=== PATIENT | female | born 2000 | race Caucasian/White ===

== ENCOUNTER → 2022-07-17 | Outpatient (REF) ==
[2022-07-17 13:20] LABS: RSV AMPLIFICATION NEGATIVE (NEGATIVE)
== END ==
LOC: M LABSMTC 10:51
PROVIDERS: ATTEND Family Medicine
DX: Z20.818 Contact with and (suspected) exposure to other bacterial communicable diseases (principal)

== ENCOUNTER 2022-09-29 09:22 | Emergency (ER) | payer OTHER ==
[~2022-09-29] VITALS: Ht 165.1 cm; Wt 64.9 kg
[2022-09-29 12:09] VITALS: BP 101/59
== END 2022-09-29 12:12 | disposition home or self-care (01) ==
LOC: M ED 09:22
DX: O9A.211 Injury, poisoning and certain other consequences of external causes complicating pregnancy, first trimester (principal); S59.912A Unspecified injury of left forearm, initial encounter; W19.XXXA Unspecified fall, initial encounter; Y92.89 Other specified places as the place of occurrence of the external cause; Y93.89 Activity, other specified; Y99.8 Other external cause status; Z3A.11 11 weeks gestation of pregnancy

== ENCOUNTER 2022-12-08 14:08 | Outpatient (CLI) | payer OTHER ==
[~2022-12-08] VITALS: Ht 165.1 cm; Wt 69.0 kg
[2022-12-08] MEDS ORDERED: COLA100C5 PO (14:23)
[2022-12-08] MEDS ORDERED: MIRA3350 PO (14:23)
[2022-12-08] MEDS ORDERED: PREN1CHW PO (14:23)
[2022-12-08] MEDS ORDERED: WELLTAB38 PO (14:23)
[2022-12-08 14:25] VITALS: BP 118/72
[2022-12-08] MEDS ORDERED: HOME MED LIST COMPLETE! XX SCH (14:25)
[2022-12-08] MEDS ORDERED: LR 1,000 ML IV ONE (15:20)
[2022-12-08] MEDS ORDERED: FLEET ENEMA PR ONE (15:20)
== END 2022-12-08 17:10 | disposition home or self-care (01) ==
LOC: M LDO 14:08
PROVIDERS: ATTEND Registered Nurse
DX: O99.612 Diseases of the digestive system complicating pregnancy, second trimester (principal); K59.00 Constipation, unspecified; Z3A.20 20 weeks gestation of pregnancy; Z88.2 Allergy status to sulfonamides; Z79.899 Other long term (current) drug therapy
CPT/HCPCS: 59025; 96360; G0463

== ENCOUNTER 2023-03-06 13:40 | Outpatient (CLI) | payer OTHER ==
[~2023-03-06] VITALS: Ht 165.1 cm; Wt 73.0 kg
[~2023-03-06 13:40] MED LIST: COLA100C5 PO; MIRA3350 PO; PREN1CHW PO; WELLTAB38 PO
[2023-03-06] MEDS ORDERED: HOME MED LIST COMPLETE! XX SCH (14:30)
== END 2023-03-06 14:55 | disposition home or self-care (01) ==
LOC: M LDO 13:40
PROVIDERS: ATTEND Obstetrics & Gynecology
DX: O36.8130 Decreased fetal movements, third trimester, not applicable or unspecified (principal); Z3A.33 33 weeks gestation of pregnancy; Z88.2 Allergy status to sulfonamides
CPT/HCPCS: 59025; 76815; G0463

== ENCOUNTER 2023-09-14 02:15 | Emergency (ER) | payer OTHER ==
[~2023-09-14] VITALS: Ht 165.1 cm; Wt 62.3 kg
[~2023-09-14 02:15] MED LIST changes: +FAMO20TA PO
[2023-09-14 03:51] LABS: BASO % 0.4 % (0.0-1.0); EOS # 0.1 10^3/uL (0.0-0.5); HEMATOCRIT 41.2 % (36.0-47.0); HEMOGLOBIN 13.8 g/dl (12.0-15.5); LYMPH # 1.2 10^3/uL (1.5-5.0); LYMPH % 12.1 % (24.0-44.0); MEAN CORPUSCULAR HEMOGLOBIN 29.2 pg (27.0-33.0); MEAN CORPUSCULAR HGB CONC 33.5 g/dl (32.0-36.5); MEAN CORPUSCULAR VOLUME 87.1 fl (80.0-96.0); MONO # 0.9 10^3/uL (0.0-0.8); MONO % 9.1 % (2.0-8.0); NEUTROPHILS # 7.6 10^3/uL (1.5-8.5); NEUTROPHILS % 77.1 % (36.0-66.0); PLATELET COUNT, AUTOMATED 238 10^3/uL (150-450); RED BLOOD COUNT 4.73 10^6/uL (4.00-5.40); WHITE BLOOD COUNT 9.8 10^3/uL (4.0-10.0)
[2023-09-14 04:14] LABS: LIPASE 28 U/L (12-53)
[2023-09-14 04:16] LABS: ALBUMIN 3.9 G/DL (3.2-5.2); ALKALINE PHOSPHATASE 66 U/L (46-116); ALT/SGPT 26 U/L (7.0-40); AST/SGOT 11 U/L (<34); BILIRUBIN,DIRECT < 0.1 MG/DL (<0.4); BILIRUBIN,TOTAL 0.2 MG/DL (0.3-1.2); TOTAL PROTEIN 7.3 G/DL (5.7-8.2)
[2023-09-14] MEDS: NS 500 ML IV ONE (04:27)
[2023-09-14] MEDS: KETOROLAC 30 MG/ML 1ML VIAL IV ONE (04:27)
[2023-09-14 04:34] LABS: RSV AMPLIFICATION NEGATIVE (NEGATIVE)
[2023-09-14 05:12] LABS: HCG, SERUM QUALITATIVE NEGATIVE (NEGATIVE)
[2023-09-14] MEDS ORDERED: DULC10SU2 PR (06:40)
[2023-09-14 06:42] VITALS: BP 127/81; TEMP 97.2; O2SAT 98
== END 2023-09-14 06:51 | disposition home or self-care (01) ==
LOC: M ED 02:15
DX: K59.00 Constipation, unspecified (principal); F32.A Depression, unspecified; F41.9 Anxiety disorder, unspecified; Z79.899 Other long term (current) drug therapy; Z88.2 Allergy status to sulfonamides
CPT/HCPCS: 74021; 80047; 80076; 81001; 83690; 84703; 85025; 87631; 96361; 96374; 99284; J1885